=== PATIENT | female | born 1945 ===

== ENCOUNTER 2017-07-20 16:39 | Inpatient (IN) | payer OTHER ==
[~2017-07-20] VITALS: Ht 154.9 cm; Wt 68.0 kg
[2017-07-24] MEDS ORDERED: AMILODIPINE PO (12:22)
[2017-07-24] MEDS ORDERED: LISINOPRIL-HCT1 EACH PO (12:22)
[2017-07-24] MEDS ORDERED: ZOCOR20 MG PO (12:23)
[2017-07-24] MEDS ORDERED: ATENOLOL25 MG PO (12:23)
[2017-08-02] MEDS ORDERED: OXYC1TAB9 PO (14:55)
[2017-08-02] MEDS ORDERED: HYOSCYAMINE0.125 M1 SL (14:55)
== END 2017-08-02 15:54 | DRG 331 ==
LOC: O/R 07-24 09:45 → SURH 07-28 06:12 → O/R 07-28 09:45 → SURH 07-28 13:24 → O/R 07-28 15:45 → SURH 08-02 15:54
PROVIDERS: Surgery
PROC: 07TC4ZZ Resection of Pelvis Lymphatic, Percutaneous Endoscopic Approach (ICD-10-PCS; 2017-07-28)
PROC: 0DTU4ZZ Resection of Omentum, Percutaneous Endoscopic Approach (ICD-10-PCS; 2017-07-28)
PROC: 0DTN4ZZ Resection of Sigmoid Colon, Percutaneous Endoscopic Approach (ICD-10-PCS; principal; 2017-07-28 15:45)
DX: C18.4 Malignant neoplasm of transverse colon (principal); R59.0 Localized enlarged lymph nodes; I10 Essential (primary) hypertension; E78.4 Other hyperlipidemia